=== PATIENT | male | born 1995 | race Caucasian/White ===

== ENCOUNTER 2017-08-11 18:52 | Emergency (ER) | payer SELFPAY ==
[2017-08-11] MEDS ORDERED: AMOXICILLIN TR/POT CLAVULANATE 500-125 MG TAB PO ONE (20:52)
[2017-08-11] MEDS ORDERED: DIPH/PERTUSS(ACELL)/TETANUS VAC/PF 0.5 ML SYR (>=10YO) IM ONE (20:52)
[2017-08-11] MEDS ORDERED: AMOXICILLIN TR/POT CLAVULANATE 250-125 MG TAB PO ONE (20:52)
[2017-08-11] MEDS ORDERED: ACETAMINOPHEN 325 MG TABLET PO ONE (20:52)
--- NOTE | 2017-08-11 21:07 | ER Document Report ---
HPI - HPI Pain Level: 2 Context: Patient is a 22-year-old male who presents emergency department with a dog bite to the palm of his left hand. Patient states that it was his dog and dog is vaccinated. No active bleeding at this time. Tetanus not up-to-date.denies any numbness or tingling - CONSTITUTIONAL Constitutional: DENIES: Fever, Chills - EENT EENT: DENIES: Sore Throat, Ear Pain, Eye problems - NEURO Neurology: DENIES: Headache, Weakness, Vision blurred, Dizzinesss / Vertigo - CARDIOVASCULAR Cardiovascular: DENIES: Chest pain - RESPIRATORY Respiratory: DENIES: Trouble Breathing, Coughing - GASTROINTESTINAL Gastrointestinal: DENIES: Abdominal Pain, Black / Bloody Stools - URINARY Urinary: DENIES: Dysuria, Urgency, Frequency - MUSCULOSKELETAL Musculoskeletal: REPORTS: Extremity pain - left hand pain/laceration Past Medical History - Social History Smoking Status: Never Smoker Chew tobacco use (# tins/day): No Frequency of alcohol use: None Drug Abuse: None Family History: Reviewed & Not Pertinent Patient has suicidal ideation: No Patient has homicidal ideation: No Pulmonary Medical History: Reports: Hx Asthma Renal/ Medical History: Denies: Hx Peritoneal Dialysis - Immunizations Immunizations up to date: Yes Hx Diphtheria, Pertussis, Tetanus Vaccination: Yes Vertical Provider Document - CONSTITUTIONAL Agree With Documented VS: Yes Notes: PHYSICAL EXAM GENERAL: Alert, interacts well. EXTREMITIES: Moves all 4 extremities spontaneously. No edema, radial and dorsalis pedis pulses 2/4 bilaterally. No cyanosis. NEUROLOGICAL: Alert and oriented x4. Normal speech. PSYCH: Normal affect, normal mood. SKIN: Warm, dry, normal turgor. Centimeter laceration noted on the palmar surface of the left hand at the base of the thenar musculature of the left thumb. Minimal protruding subcutaneous tissue that was easily reduced. - INFECTION CONTROL TRAVEL OUTSIDE OF THE [place] IN LAST 30 DAYS: No Course - Re-evaluation Re-evalutation: 08/11/17 21:05 Patient is a 22-year-old male presents with a dog bite injury. Wound was irrigated with Betadine and saline and dressed with Steri-Strips. Patient's tetanus status updated and patient initiated on Augmentin. Exam without any concerns for retained foreign body, tendon injury given hand is neurovascularly intact. No evidence of injury on the dorsal surface of the hand. Discussed wound care at home and strict return precautions. Patient stable for discharge home - Vital Signs Vital signs: Temp Pulse Resp BP Pulse Ox 99.5 F 97 18 136/84 H 98 08/11/17 19:18 08/11/17 19:18 08/11/17 19:18 08/11/17 19:18 08/11/17 19:18 Discharge - Discharge Clinical Impression: Dog bite Qualifiers: Encounter type: initial encounter Qualified Code(s): W54.0XXA - Bitten by dog, initial encounter Condition: Good Disposition: HOME, SELF-CARE Instructions: Animal Bites ([facility]), Augmentin ([facility]) Prescriptions: Amox Tr/Potassium Clavulanate [Augmentin 875-125 Tablet] 1 tab PO BID 7 Days tablet Forms: Special Work Note
[2017-08-11 21:15] VITALS: BP 123/80
== END 2017-08-11 21:14 | disposition home or self-care (01) ==
LOC: ER 18:52
DX: S61.452A Open bite of left hand, initial encounter (principal); W54.0XXA Bitten by dog, initial encounter; J45.909 Unspecified asthma, uncomplicated
CPT/HCPCS: 99283; 90471; 90715; 12001; J3490